=== PATIENT | female | born 1955 | race Two or more races ===

== ENCOUNTER 2017-08-04 14:33 | Emergency (ER) | payer MEDICAID ==
[~2017-08-04] VITALS: Ht 165.1 cm; Wt 72.6 kg
[~2017-08-04 14:33] MED LIST: AZITHROMYCIN250 MG ORAL; CRESTOR10 M1 ORAL; LEVOTHYROXINE25 MCG ORAL; LEVOTHYROXINE50 MCG ORAL; METOPROLOL SUCC50 MG ORAL; OMEPRAZOLE20 M3 ORAL; PROMETHAZINE-C118 M1 ORAL; TENORMIN25 MG ORAL; TRICOR145 MG ORAL
[2017-08-04 14:50] VITALS: BP 138/70
--- NOTE | 2017-08-04 14:56 | Emergency Room Report ---
History of Present Illness General Chief Complaint: Abdominal Pain Source: Patient, Medical Record Present Illness HPI The patient presents with 6 days of vomiting and epigastric pain. Burning pain that's now 7/10, not radiating, constant. She states it doesn't radiate. She doesn't take any medication for this. She denies vomiting blood. She tried not eating but started to feel weak. There's no diarrhea or dysuria. She denies any fevers or chills. There's no chest pain or cough. Never had this problem before. No rashes, headache, travel, unusual foods or ill contacts. H/O high lipids and low thyroid. Allergies: Coded Allergies: No Known Allergies (Unverified , 09/20/13) Patient History Past Medical History: see triage record Social History: Denies: smoking, alcohol use Social History Narrative with sig other Reviewed Nursing Documentation: PMH: Agreed, PSxH: Agreed Nursing Documentation-PMH Past Medical History: No History, Except For Hx Hypertension: Yes Hx Gastrointestinal Problems: Yes Review of Systems All Other Systems: negative except mentioned in HPI Physical Exam Vital Signs Date Time Temp Pulse Resp B/P (MAP) Pulse Ox O2 Delivery O2 Flow Rate FiO2 08/04/17 14:43 98.1 62 18 144/83 97 Room Air Sp02 EP Interpretation: reviewed, normal General Appearance: well appearing, no apparent distress, GCS 15 Head: normocephalic Eyes: bilateral eye normal inspection, bilateral eye PERRL ENT: moist mucus membranes Neck: supple Respiratory: lungs clear, normal breath sounds Cardiovascular #1: regular rate, rhythm Cardiovascular #2: 2+ radial (R) Gastrointestinal: normal inspection, normal bowel sounds, no mass, non- distended, no guarding, no rebound, tenderness - reported epigastric area Musculoskeletal: back normal, gait/station normal, normal range of motion Neurologic: alert, oriented x3, grossly normal Psychiatric: mood/affect normal Skin: normal inspection, warm/dry Medical Decision Making Diagnostic Impression: Primary Impression: Nausea & vomiting Qualified Codes: R11.2 - Nausea with vomiting, unspecified Additional Impression: Epigastric pain ER Course Patient presents with epigastric pain for 6 days with vomiting. Differential includes acute myocardial infarction, gastritis, gastroenteritis although there is no diarrhea, peptic ulcer disease, pancreatitis amongst others. Evaluation beers EKG, labs. The patient was treated with IV hydration, Pepcid Zofran and a small dose of morphine. Consideration to use Mylanta also. Based on hx and exam, no imaging studies initially indicated. EKG no injury. Labs significant for normal WBC and electrolytes/lipase. UA with nitrites, but few WBC (doubt UTI - will check culture). Patient improved with treatment. The patient is stable for outpatient observation and treatment. Labs Test 08/04/17 14:58 08/04/17 15:12 Urine Color [place] Urine Appearance Cloudy Urine pH 5 (4.5-8.0) Urine Specific [place] 1.020 (1.005-1.035) Urine Protein 1+ (NEGATIVE) Urine Glucose (UA) Negative (NEGATIVE) Urine Ketones 3+ (NEGATIVE) Urine Occult Blood 1+ (NEGATIVE) Urine Nitrite Positive (NEGATIVE) Urine Bilirubin 2+ (NEGATIVE) Urine Ictotest Negative Urine Urobilinogen 4 MG/DL (0.0-1.0) Urine Leukocyte Esterase 2+ (NEGATIVE) Urine RBC 0-2 /HPF (0 - 2) Urine WBC 0-2 /HPF (0 - 2) Urine Squamous Epithelial Cells Occasional /LPF Urine Amorphous Sediment Moderate /LPF (NONE) Urine Bacteria Moderate /HPF (NONE) White Blood Count 7.9 K/UL (4.8-10.8) Red Blood Count 4.32 M/UL (4.20-5.40) Hemoglobin 13.2 G/DL (12.0-16.0) Hematocrit 38.1 % (37.0-47.0) Mean Corpuscular Volume 88 FL (80-99) Mean Corpuscular Hemoglobin 30.5 PG (27.0-31.0) Mean Corpuscular Hemoglobin Concent 34.6 G/DL (32.0-36.0) Red Cell Distribution Width 10.8 % (11.6-14.8) Platelet Count 288 K/UL (150-450) Mean Platelet Volume 5.8 FL (6.5-10.1) Neutrophils (%) (Auto) 50.9 % (45.0-75.0) Lymphocytes (%) (Auto) 36.1 % (20.0-45.0) Monocytes (%) (Auto) 9.3 % (1.0-10.0) Eosinophils (%) (Auto) 2.7 % (0.0-3.0) Basophils (%) (Auto) 1.0 % (0.0-2.0) Prothrombin Time 10.0 SEC (9.30-11.50) Prothromb Time International Ratio 1.0 (0.9-1.1) Activated Partial Thromboplast Time 27 SEC (23-33) Sodium Level 140 MMOL/L (136-145) Potassium Level 3.8 MMOL/L (3.5-5.1) Chloride Level 104 MMOL/L (98-107) Carbon Dioxide Level 26 MMOL/L (21-32) Anion Gap 10 mmol/L (5-15) Blood Urea Nitrogen 10 mg/dL (7-18) Creatinine 0.7 MG/DL (0.55-1.30) Estimat Glomerular Filtration Rate > 60 mL/min (>60) Glucose Level 88 MG/DL (74-106) Calcium Level 9.1 MG/DL (8.5-10.1) Total Bilirubin 0.5 MG/DL (0.2-1.0) Aspartate Amino Transf (AST/SGOT) 32 U/L (15-37) Alanine Aminotransferase (ALT/SGPT) 51 U/L (12-78) Alkaline Phosphatase 96 U/L (46-116) Troponin I 0.000 ng/mL (0.000-0.056) Total Protein 7.2 G/DL (6.4-8.2) Albumin 3.7 G/DL (3.4-5.0) Globulin 3.5 g/dL Albumin/Globulin Ratio 1.1 (1.0-2.7) Lipase 144 U/L (73-393) EKG Diagnostic Results Rate: normal Rhythm: NSR ST Segments: no acute changes Rhythm Strip Diag. Results EP Interpretation: yes Rhythm: NSR, no PVC's, no ectopy Last Vital Signs Date Time Temp Pulse Resp B/P (MAP) Pulse Ox O2 Delivery O2 Flow Rate FiO2 08/04/17 17:06 98.0 74 15 138/70 93 Room Air Status: improved Disposition: HOME, SELF-CARE Condition: Improved Scripts Famotidine (PEPCID) 20 Mg Tablet 20 MG ORAL DAILY, #30 TAB 0 Refills Prov: Mu Fitch M.D. 08/04/17 Ondansetron Odt* (ZOFRAN ODT*) 4 Mg Tab.rapdis 4 MG ORAL Q8H Y for Nausea & Vomiting, #6 TAB 1 Refill Prov: Mu Fitch M.D. 08/04/17 Mu Fitch M.D. Aug 04, 2017 14:56
[2017-08-04] MEDS ORDERED: Morphine Sulfate 4mg/ml Inj IVP ONE (15:00)
[2017-08-04 15:26] LABS: APPEARANCE,URINE CLOUDY; BILIRUBIN, URINE 2+ (NEGATIVE); COLOR,URINE ORANGE; GLUCOSE, URINE (UA) NEGATIVE (NEGATIVE); KETONES,URINE 3+ (NEGATIVE); LEUKOCYTE ESTERASE ,URINE 2+ (NEGATIVE); NITRITE,URINE POSITIVE (NEGATIVE); PH,URINE 5 (4.5-8.0); PROTEIN,URINE 1+ (NEGATIVE); UROBILINOGEN,URINE 4 MG/DL (0.0-1.0)
[2017-08-04 15:34] LABS: EOSINOPHILS % (AUTO) 2.7 % (0.0-3.0); HEMATOCRIT 38.1 % (37.0-47.0); HEMOGLOBIN 13.2 G/DL (12.0-16.0); LYMPHOCYTES % (AUTO) 36.1 % (20.0-45.0); MEAN CORPUSCULAR VOLUME 88 FL (80-99); MONOCYTES % (AUTO) 9.3 % (1.0-10.0); NEUTROPHILS % (AUTO) 50.9 % (45.0-75.0); PLATELET COUNT 288 K/UL (150-450); RED BLOOD COUNT 4.32 M/UL (4.20-5.40); RED CELL DISTRIBUTION WIDTH 10.8 % (11.6-14.8); WHITE BLOOD COUNT 7.9 K/UL (4.8-10.8)
[2017-08-04] MEDS ORDERED: OYSTER SHELL 51 EAC1 PO (15:45)
[2017-08-04] MEDS ORDERED: ATORVASTATIN CA40 MG ORAL (15:45)
[2017-08-04 15:51] LABS: ALANINE AMINOTRANSFERASE 51 U/L (12-78); ALBUMIN 3.7 G/DL (3.4-5.0); ALBUMIN/GLOBULIN RATIO 1.1 (1.0-2.7); ALKALINE PHOSPHATASE 96 U/L (46-116); ANION GAP 10 mmol/L (5-15); ASPARTATE AMINO TRANSFERASE 32 U/L (15-37); BILIRUBIN,TOTAL 0.5 MG/DL (0.2-1.0); BLOOD UREA NITROGEN 10 mg/dL (7-18); CALCIUM 9.1 MG/DL (8.5-10.1); CARBON DIOXIDE 26 MMOL/L (21-32); CHLORIDE 104 MMOL/L (98-107); CREATININE 0.7 MG/DL (0.55-1.30); POTASSIUM 3.8 MMOL/L (3.5-5.1); SODIUM 140 MMOL/L (136-145)
[2017-08-04] MEDS ORDERED: PEPCID20 MG ORAL (16:55)
[2017-08-04] MEDS ORDERED: ZOFRAN ODT4 MG ORAL (16:55)
[2017-08-04 17:06] VITALS: BP 138/70
--- NOTE | 2017-08-05 20:18 | Cardiology Report ---
APPROVED REPORT EKG Measurement Heart [id number] [place] [id number] Normal sinus rhythm Normal ECG
--- NOTE | 2017-08-05 20:18 | Cardiology Report ---
APPROVED REPORT EKG Measurement Heart [id number] [place] [id number] [id number] Normal sinus rhythm Normal ECG
--- NOTE | 2017-08-05 20:18 | Cardiology Report ---
APPROVED REPORT EKG Measurement Heart [id number] [place] [id number] Normal sinus rhythm Normal ECG
== END 2017-08-04 17:37 | disposition home or self-care (01) ==
LOC: EMR 15:00
DX: R10.13 Epigastric pain (principal); R11.2 Nausea with vomiting, unspecified; I10 Essential (primary) hypertension
CPT/HCPCS: 36415; 80053; 81003; 83690; 84484; 85025; 85610; 85730; 87086; 93005; 96361; 96374; 96375; 99284; J2270; J2405; S0028

== ENCOUNTER 2018-08-24 12:32 | Emergency (ER) | payer MEDICAID ==
[~2018-08-24] VITALS: Ht 157.5 cm; Wt 76.2 kg
[~2018-08-24 12:32] MED LIST changes: +ATORVASTATIN CA40 MG ORAL; +OYSTER SHELL 51 EAC1 PO; +PEPCID20 MG ORAL; +ZOFRAN ODT4 MG ORAL
[2018-08-24 12:44] VITALS: BP 128/75
--- NOTE | 2018-08-24 12:56 | Emergency Room Report ---
History of Present Illness General Chief Complaint: Upper Respiratory Illness Source: Patient Present Illness HPI 63-year-old female patient presents ER complaining of cough for the past 2 weeks. Reports dry cough. Denies hemoptysis or sputum production. Denies chest pain or shortness of breath. Reports reproducible posterior rib pain during this time with cough. Denies history of heart attack or stroke. reports history of hypothyroidism which she takes levothyroxine and atenolol for. Denies calf pain denies chest pain. Denies recent travel. denies vomiting or vision changes. Denies headache. Reports took gnes-lgo-tpoylas cough medication without relief of symptoms. denies history of atrial fibrillation or arrhythmia. denies injury or trauma. Allergies: Coded Allergies: No Known Allergies (Unverified , 09/20/13) Patient History Past Medical History: see triage record Now: No Reviewed Nursing Documentation: PMH: Agreed; PSxH: Agreed Nursing Documentation-PM Past Medical History: No History, Except For Hx Hypertension: Yes Hx Gastrointestinal Problems: Yes Review of Systems All Other Systems: negative except mentioned in HPI Physical Exam Vital Signs Date Time Temp Pulse Resp B/P (MAP) Pulse Ox O2 Delivery O2 Flow Rate FiO2 08/24/18 12:38 98.4 87 20 128/75 95 Room Air Sp02 EP Interpretation: reviewed, normal General Appearance: well appearing, no apparent distress, alert, GCS 15, non- toxic Head: normocephalic, atraumatic Eyes: bilateral eye normal inspection, bilateral eye PERRL ENT: hearing grossly normal, normal pharynx, no angioedema, normal voice, TMs + canals normal, uvula midline, moist mucus membranes Neck: full range of motion, no bony tend Respiratory: lungs clear, normal breath sounds, no rhonchi, no respiratory distress, no accessory muscle use, no wheezing, speaking full sentences Cardiovascular #1: regular rate, rhythm, no edema Cardiovascular #2: 2+ radial (R), 2+ radial (L) Musculoskeletal: back normal, digits/nails normal, gait/station normal, normal range of motion, non-tender, no calf tenderness, Carmen's Sign negative Neurologic: alert, oriented x3, responsive, motor strength/tone normal, sensory intact Psychiatric: mood/affect normal Skin: no rash Lymphatic: no adenopathy Medical Decision Making PA Attestation Dr. De Leon is my supervising Physician whom patient management has been discussed with. Diagnostic Impression: Primary Impression: Upper respiratory infection ER Course Pt presents to ED c/o cough 2 weeks. DDX considered but are not limited to influenza, viral URI, pneumonia, strep throat, sinusitis, bronchitis, CHF, MO. denies calf pain, negative Homans sign, no hemoptysis, no chest pain or shortness of breath, no recent travel, low suspicion for PE per well's criteria. no history of heart disease or heart attack, low suspicion for cardiac etiology of symptoms. VITAL SIGNS are WNL, patient is afebrile. ER COURSE: EKG No ST elevations or atrial fibrillation Chest x-ray negative for acute disease, low suspicion for pneumonia. EKG and chest x-ray negative, low suspicion for cardiac etiology of symptoms, does not require cardiac workup at this time. Lungs clear to auscultation, no wheezes, rhonci or rales. patient afebrile. Likely upper respiratory infection. Symptomatic treatment. drink plenty of fluids. Salt water gargles for sore throat. Followup with PCP for further treatment and/or referral as needed. DISCHARGE: At this time pt is stable for d/c to home. Patient is resting comfortably, in no acute distress, nontoxic appearing. Patient to take medications as instructed Will provide with patient care instructions and any necessary prescriptions. Care plan and follow-up instructions provided. Patient instructed to follow-up with primary care provider in 3 - 5 days. Patient questions asked and answered. Patient reports understanding and agreement to treatment plan. ER precautions given. Patient instructed to return to ER immediately for any new or worsening of symptoms including but not limited to increasing SOB, persistent fever, intractable vomiting. - Please note that this Emergency Department Report was dictated using [employer] specialist technology software, occasionally this can lead to erroneous entry secondary to interpretation by the dictation equipment. EKG Diagnostic Results Rate: normal Rhythm: NSR ST Segments: no acute changes ASA given to the pt in ED: No PA Scribe Text Walter Royal PA-C Rhythm Strip Diag. Results EP Interpretation: yes Rate: 76 Rhythm: NSR, no PVC's, no ectopy PA Scribe Text Walter Royal PA-C Chest X-Ray Diagnostic Results Chest X-Ray Diagnostic Results : Chest X-Ray Ordered: Yes # of Views/Limited/Complete: 1 View Indication: Chest Pain EP Interpretation: Yes GISSELLE Xray: Interpretation reviewed, by supervising MD, and agrees with findings. Interpretation: no consolidation, no effusion, no pneumothorax, no acute cardiopulmonary disease Impression: No acute disease GISSELLE Walker Text Walter Royal PA-C Last Vital Signs Date Time Temp Pulse Resp B/P (MAP) Pulse Ox O2 Delivery O2 Flow Rate FiO2 08/24/18 12:44 85 18 Room Air 08/24/18 12:44 98.6 128/75 96 Disposition: HOME, SELF-CARE Condition: Stable Scripts D-Methorphan/PE/Acetaminophen (Sudafed PE Pressure+Pain+Cough) 1 Each Tablet 1 EACH PO BID, #24 TAB Prov: Gene Royal 08/24/18 Benzonatate* (TESSALON PERLE*) 100 Mg Capsule 100 MG ORAL THREE TIMES A DAY, #30 PERLE Prov: Gene Royal 08/24/18 Acetaminophen* (TYLENOL EXTRA STRENGTH*) 500 Mg Tablet 500 MG ORAL Q8H PRN for Prn Headache/Temp > 101, #30 TAB 0 Refills Prov: Gene Royal 08/24/18 Patient Instructions: Upper Respiratory Infection, Adult Additional Instructions: Followup with primary care provider in 3 -5 days. Take medications as directed. Patient questions asked and answered. ER precautions given, patient instructed to return to ER immediately for any new or worsening of symptoms. Gene Royal Aug 24, 2018 12:56
[2018-08-24] MEDS ORDERED: Benzonatate 100mg Perles ORAL ONE (13:00)
[2018-08-24] MEDS ORDERED: SUDAFED PE PRE1 EACH PO (13:49)
[2018-08-24] MEDS ORDERED: TESSALON PERLE100 MG ORAL (13:49)
[2018-08-24] MEDS ORDERED: TYLENOL EXTRA500 MG ORAL (13:49)
[2018-08-24 14:02] VITALS: BP 129/74
--- NOTE | 2018-08-25 13:20 | Diagnostic Imaging Report ---
Indication: Chest pain Technique: One view of the chest Comparison: 05/06/2015 Findings: The lungs and pleural spaces are clear. Heart size is normal. The left hemidiaphragm is somewhat elevated. No significant interim change Impression: No acute process
== END 2018-08-24 14:02 | disposition home or self-care (01) ==
LOC: EMR 13:48
DX: J06.9 Acute upper respiratory infection, unspecified (principal); R07.81 Pleurodynia; I10 Essential (primary) hypertension; R07.9 Chest pain, unspecified
CPT/HCPCS: 71045; 93005; 99283

== ENCOUNTER 2019-03-20 13:07 | Emergency (ER) | payer MEDICAID ==
[~2019-03-20] VITALS: Ht 160 cm; Wt 72.6 kg
[~2019-03-20 13:07] MED LIST changes: +SUDAFED PE PRE1 EACH PO; +TESSALON PERLE100 MG ORAL; +TYLENOL EXTRA500 MG ORAL
--- NOTE | 2019-03-20 13:30 | NUR ---
ED Nurse Note: Patient walked into ED due to flu like symptoms (cough, runny nose and sore throat) for 3 weeks
[2019-03-20 14:12] VITALS: BP 131/79
--- NOTE | 2019-03-20 14:16 | Emergency Room Report ---
History of Present Illness General Chief Complaint: Upper Respiratory Illness Source: Medical Record Present Illness HPI 63-year-old female presents to the emergency department complaining of persistent productive cough with runny nose, nasal congestion and 4-10 severity sore throat x3 weeks. Patient denies fevers or chills she denies body aches, recent travel or history of smoking/asthma. Patient reports daughter has similar symptoms as well. Patient states that she is vaccinated. Patient denies neck pain or stiffness denies headache or photophobia. History of hypothyroid, high cholesterol, and high blood pressure. Denies chest pains, palpitations or feeling short of breath. Allergies: Coded Allergies: No Known Allergies (Unverified , 09/20/13) Patient History Past Medical History: see triage record Past Surgical History: none Pertinent Family History: none Now: No Reviewed Nursing Documentation: PMH: Agreed; PSxH: Agreed Nursing Documentation-PMH Past Medical History: No History, Except For Hx Hypertension: Yes Hx Gastrointestinal Problems: Yes Review of Systems All Other Systems: negative except mentioned in HPI Physical Exam Vital Signs Date Time Temp Pulse Resp B/P (MAP) Pulse Ox O2 Delivery O2 Flow Rate FiO2 03/20/19 13:23 98.2 86 16 135/81 (99) 94 Room Air Sp02 EP Interpretation: reviewed, normal General Appearance: no apparent distress, alert, GCS 15, non-toxic Head: normocephalic, atraumatic Eyes: bilateral eye normal inspection, bilateral eye PERRL ENT: hearing grossly normal, normal pharynx, normal voice, TMs + canals normal , uvula midline, nasal congestion, pharyngeal erythema Neck: full range of motion Respiratory: chest non-tender, lungs clear, normal breath sounds, no respiratory distress, no accessory muscle use, speaking full sentences Cardiovascular #1: regular rate, rhythm, no edema Musculoskeletal: back normal, gait/station normal, normal range of motion, non- tender Neurologic: alert, oriented x3, responsive, motor strength/tone normal, sensory intact, normal gait, speech normal, grossly normal Psychiatric: judgement/insight normal Skin: normal color, no rash, warm/dry, well hydrated Lymphatic: no adenopathy Medical Decision Making PA Attestation Dr. Garcia Is my supervising Physician whom patient management has been discussed with. Diagnostic Impression: Primary Impression: Bronchitis ER Course 63-year-old female presents to the emergency department complaining of persistent productive cough with runny nose, nasal congestion and 4-10 severity sore throat x3 weeks. Patient denies fevers or chills she denies body aches, recent travel or history of smoking/asthma. Patient reports daughter has similar symptoms as well. Patient states that she is vaccinated. Patient denies neck pain or stiffness denies headache or photophobia. History of hypothyroid, high cholesterol, and high blood pressure. Denies chest pains, palpitations or feeling short of breath. Ddx considered but are not limited to URI, pneumonia, PE, strep pharyngitis, meningitis. Vital signs: Pt.is afebrile VS are WNL H&PE are most consistent with bronchitis ORDERS: none required at this time, the diagnosis is clinical ED INTERVENTIONS: None required at this time. DISCHARGE: At this time pt. is stable for d/c to home. Will provide printed patient care instructions, and any necessary prescriptions. Care plan and follow up instructions have been discussed with the patient prior to discharge. Last Vital Signs Date Time Temp Pulse Resp B/P (MAP) Pulse Ox O2 Delivery O2 Flow Rate FiO2 03/20/19 13:38 86 16 Room Air 03/20/19 13:23 98.2 135/81 (99) 94 Disposition: HOME, SELF-CARE Condition: Stable Scripts Guaifenesin (Mucinex) 1,200 Mg Tab.er.12h 1200 MG PO Q12HR for 10 Days, #20 TAB Prov: Aletha Multani 03/20/19 Albuterol Sulfate* (ALBUTEROL SULFATE MDI*) 8.5 Gm Hfa.aer.ad 2 PUFF INH Q3H, #1 INH 0 Refills Prov: Aletha Multani 03/20/19 Benzonatate* (BENZONATATE*) 200 Mg Capsule 200 MG ORAL THREE TIMES A DAY, #20 PERLE Prov: Aletha Multani 03/20/19 Codeine/Promethazine Hcl* (PROMETHAZINE-CODEINE SYRUP*) 118 Ml Syrup 5 ML ORAL Q6H PRN for For Cough, #120 ML 0 Refills Prov: Aletha Multani 03/20/19 Referrals: NON PHYSICIAN (PCP) Patient Instructions: Acute Bronchitis, [id number]-to-[id number] Additional Instructions: Take medications as directed. Follow up with a Primary Care Provider in 3-5 days, even if your symptoms have resolved. --Please review list of primary care clinics, if you do not already have a primary care provider Return sooner to ED if new symptoms occur, or current symptoms become worse. Do not drink alcohol, drive, or operate heavy machinery while taking Cough Syrup as this may cause drowsiness. - Please note that this Emergency Department Report was dictated using [employer] and wellness instructor technology software, occasionally this can lead to erroneous entry secondary to interpretation by the dictation equipment. Aletha Multani Mar 20, 2019 14:16
[2019-03-20] MEDS ORDERED: BENZONATATE200 MG ORAL (14:19)
[2019-03-20] MEDS ORDERED: ALBUTEROL SULF8.5 GM INH (14:19)
[2019-03-20] MEDS ORDERED: PROMETHAZINE-C118 M1 ORAL (14:19)
[2019-03-20] MEDS ORDERED: MUCINEX1200 MG PO (14:19)
[2019-03-20 14:34] VITALS: BP 131/79
--- NOTE | 2019-03-20 14:34 | NUR ---
ER DISCHARGE NOTE: Patient is cleared to be discharged per ELSIE SANCHEZ, pt is aox4, on room air, with stable vital signs. pt was given dc and prescription instructions, pt was able to verbalize understanding, pt id band removed without complications. pt is able to ambulate with steady gait. pt took all belongings.
== END 2019-03-20 14:34 | disposition home or self-care (01) ==
LOC: EMR 13:54
DX: J40 Bronchitis, not specified as acute or chronic (principal); I10 Essential (primary) hypertension; E03.9 Hypothyroidism, unspecified; E78.00 Pure hypercholesterolemia, unspecified
CPT/HCPCS: 99283

== ENCOUNTER 2019-06-19 19:03 | Emergency (ER) | payer MEDICAID ==
[~2019-06-19] VITALS: Ht 157.5 cm; Wt 77.1 kg
[~2019-06-19 19:03] MED LIST changes: +ALBUTEROL SULF8.5 GM INH; +BENZONATATE200 MG ORAL; +MUCINEX1200 MG PO
[2019-06-19 19:09] VITALS: BP 146/73
[2019-06-19] MEDS ORDERED: OMEPRAZOLE10 M1 ORAL (19:13)
--- NOTE | 2019-06-19 19:19 | NUR ---
ED Nurse Note: Pt walke din due to coughing with sore throat and runny nose x 5 days. Denies fever. AAO x4 and ambulatory with non labored breathing.
[2019-06-19] MEDS ORDERED: OCUFLOX5 ML OP (19:33)
[2019-06-19] MEDS ORDERED: TUSSIN DM LIQU118 ML PO (19:33)
[2019-06-19] MEDS ORDERED: LORATADINE10 M2 PO (19:34)
[2019-06-19 19:42] VITALS: BP 142/70
--- NOTE | 2019-06-19 19:42 | NUR ---
ER DISCHARGE NOTE: Patient is cleared to be discharged per PA, pt is aox4, on room air, with stable vital signs. pt was given dc and prescription instructions, pt was able to verbalize understanding, pt id band removed. pt is able to ambulate with steady gait. pt took all belongings and left with a family member.
--- NOTE | 2019-06-19 20:01 | Emergency Room Report ---
History of Present Illness General Chief Complaint: Flu Like Symptoms Source: Patient Present Illness HPI 64-year-old female accompanied by family complaining of productive cough, sore throat, nasal congestion x4 to 5 days. Started with bilateral eye discharge today. Denies eye pain or vision change. Denies fever, chest pain, shortness of breath, vomiting, diarrhea, abdominal pain. Good appetite. Normal urination and BM. Allergies: Coded Allergies: No Known Allergies (Unverified , 06/19/19) Patient History Past Medical History: other - hypothyroidism Past Surgical History: none Social History: Denies: smoking, alcohol use, drug use Nursing Documentation-[facility] Past Medical History: No History, Except For Hx Hypertension: Yes Hx Gastrointestinal Problems: Yes Review of Systems All Other Systems: negative except mentioned in HPI Physical Exam Vital Signs Date Time Temp Pulse Resp B/P (MAP) Pulse Ox O2 Delivery O2 Flow Rate FiO2 06/19/19 19:09 99.9 96 18 146/73 (97) 95 Room Air Sp02 EP Interpretation: reviewed, normal General Appearance: no apparent distress, alert, GCS 15, non-toxic Eyes: bilateral eye other - purulent yellow discharge ENT: hearing grossly normal, normal pharynx, no angioedema, normal voice Respiratory: chest non-tender, lungs clear, normal breath sounds, speaking full sentences Cardiovascular #1: regular rate, rhythm, no edema Skin: no rash, warm/dry Medical Decision Making PA Attestation This patient was seen under the direct supervision of Dr. Tirado, who directed all aspects of care and diagnostic interpretation. Diagnostic Impression: Primary Impression: Conjunctivitis Qualified Codes: H10.33 - Unspecified acute conjunctivitis, bilateral Additional Impression: Upper respiratory infection ER Course ED course HPI: 64-year-old female accompanied by family complaining of productive cough, sore throat, nasal congestion x4 to 5 days. Started with bilateral eye discharge today. Denies eye pain or vision change. Denies fever, chest pain, shortness of breath, vomiting, diarrhea, abdominal pain. Good appetite. Normal urination and BM. Ddx: viral URI, pneumonia, bronchitis HPI & PE consistent with: Bacterial conjunctivitis, viral URI Orders/ Interventions: None. No signs or symptoms of otitis media or acute pharyngitis. Discussed with patient oral antibiotics are not indicated. Disposition: Patient discharged with prescription for Ocuflox, Tussin DM and loratadine. Hand hygiene. Supportive care. Increase oral hydration. At this time pt. is stable for d/c to home. Will provide printed patient care instructions, and any necessary prescriptions. Care plan and follow up instructions have been discussed with the patient prior to discharge. Please note that this Emergency Department Report was dictated using [employer] instructor technology software, occasionally this can lead to erroneous entry secondary to interpretation by the dictation equipment. Last Vital Signs Date Time Temp Pulse Resp B/P (MAP) Pulse Ox O2 Delivery O2 Flow Rate FiO2 06/19/19 19:42 99.5 89 18 142/70 97 Room Air Status: unchanged Disposition: HOME, SELF-CARE Condition: Stable Scripts Loratadine (LORATADINE) 10 Mg Tablet 10 MG PO DAILY, #10 TAB Prov: Melinda Cesar 06/19/19 Guaifenesin/Dextromethorphan (TUSSIN DM LIQUID) 118 Ml Liquid 10 ML PO EVERY 8 HOURS, #180 ML Prov: Melinda Cesar 06/19/19 Ofloxacin (OCUFLOX) 5 Ml Drops 1 DROP OP EVERY 6 HOURS, #5 ML Prov: Melinda Cesar 06/19/19 Referrals: [facility],REFERRING (PCP) Patient Instructions: Upper Respiratory Infection, Adult, [id number], Bacterial Conjunctivitis, [id number] Additional Instructions: Followup with PCP in 2 days return to ER if worsening symptoms, new symptoms or sudden change in condition. Melinda Cesar Jun 19, 2019 20:01
== END 2019-06-19 19:42 | disposition home or self-care (01) ==
LOC: EMR 19:31
DX: J06.9 Acute upper respiratory infection, unspecified (principal); H10.33 Unspecified acute conjunctivitis, bilateral; I10 Essential (primary) hypertension
CPT/HCPCS: 99282